=== PATIENT | male | born 1945 | race Caucasian/White ===

== ENCOUNTER 2018-10-19 10:52 | Emergency (ER) | payer MEDICARE, OTHER, SELFPAY ==
[2018-10-19] VITALS (7 sets, daily range): BP systolic 119–143; BP diastolic 74–90; PULSE 59–86; RESP 14–20; TEMP 36.4; O2SAT 97–99; BMI 23.7
--- NOTE | 2018-10-19 12:58 | DI.CT.S_ITS ---
PROCEDURE: CT HEAD/BRAIN WO CON INDICATIONS: Left hand paresthesia, h/o CVA/TIA TECHNIQUE: Noncontrast 4.5 mm thick angled axial sections acquired from the foramen magnum to the vertex, with coronal and sagittal reformats. For radiation dose reduction, the following was used: automated exposure control, adjustment of mA and/or kV according to patient size. COMPARISON: [facility], MR, STROKE PROTOCOL, 06/20/2017, 12:59. [facility], MR, STROKE PROTOCOL, 02/06/2014, 16:20. [facility], CT, HEAD WITHOUT CONTRAST, 02/05/2014, 23:12. FINDINGS: Image quality: Excellent. CSF spaces: Basal cisterns are patent. No extra-axial fluid collections. The ventricles are symmetric in size and shape. Brain: No intracranial bleeds or masses. There is cerebral volume loss for age, with resultant ventricular and sulcal prominence. There are periventricular and deep white matter chronic small vessel ischemic changes. There is intracranial internal carotid artery atherosclerosis. Skull and face: Calvarium and visualized facial bones appear intact, without suspicious lesions. Sinuses: The mastoids are clear. Left maxillary sinus mucosal thickening is present. IMPRESSION: 1. No acute intracranial abnormalities. 2. Cerebral volume loss and chronic microvascular ischemic changes. 3. Left maxillary sinus because of thickening. Dictated by: Philippe Portillo M.D. on 10/19/2018 at 12:16 Approved by: Philippe Portillo M.D. on 10/19/2018 at 12:19
--- NOTE | 2018-10-19 13:08 | ED_ITS ---
HPI - Neuro Symptoms/Deficit <Sheron Golden PA-C - Last Filed: 10/19/18 20:02> General Chief Complaint: Neuro Symptoms/Deficit Stated Complaint: LEFT HAND NUMBNESS, PREVIOUS STROKE Time Seen by Provider: 10/19/18 12:41 Source: patient Mode of arrival: ambulatory Limitations: no limitations History of Present Illness HPI Narrative: This 79-year-old gentleman comes in due to sensation of tingling in his left hand fingers excluding the thumb for less than 48 hr. He states that this actually started while he was traveling in [place] for the [employer] when this started. He states that he had been carrying luggage and things but no specifically known trauma. He states that he has absolutely no weakness in his hand, just a feeling that the fingers are waking up from sleep. He has no pain anywhere including the left upper extremity. He states that he is feeling fine and denies any other new symptoms such as palpitations, chest discomfort, dyspnea, or dizziness. He has not had any difficulty with speech, swallowing, or coordination. He states that tender 15 years ago he did lose speaking ability and had right arm weakness and was evaluated on an emergent basis, symptoms resolved fairly quickly and he believes he was diagnosed with TIA, has been on ASA since then. He states that for 5 years ago, he developed some right hand numbness after he had been working with a chain saw in that hand all day. He states that it resolved within 48 hr, but he was told that he had a CVA. He states that he has been on ASA due to these. He states that he still does not think this episode several years ago was a CVA as he felt it was related to repetitive motion with the saw. He has not had any recurrent symptoms since. Is ambidextrous On Anticoagulants: Yes (80 mg ASA) Related Data Home Medications Medication Instructions Recorded Confirmed Allergy Med 1 tab PO DAILY 10/19/18 10/19/18 Probiotic 1 cap PO DAILY 10/19/18 10/19/18 aspirin 81 mg PO DAILY 10/19/18 10/19/18 omeprazole 20 mg PO DAILY 10/19/18 10/19/18 Allergies Allergy/AdvReac Type Severity Reaction Status Date / Time No Known Drug Allergies Allergy Verified 10/19/18 11:12 Review of Systems <Sheron Golden PA-C - Last Filed: 10/19/18 20:02> Review of Systems All systems reviewed & are unremarkable except as noted in HPI and below Exam <Sheron Golden PA-C - Last Filed: 10/19/18 20:02> Narrative Exam Narrative: GENERAL APPEARANCE: Patient sitting comfortably, appears well HEENT: PERRL, EOMI, normal TMs and oropharynx NECK: Supple LUNGS: Clear to auscultation bilaterally. HEART: Rate and rhythm regular without murmur, normal S1 and S2, no S3 or S4. ABDOMEN: Soft, NT, ND, + BS x 4 quadrants NEUROLOGIC: Alert and oriented, normal speech and coordination. Sensation is intact throughout the fingers in both hands including sharp/dull. Negative Tinel's and Phalen's signs MUSCULOSKELETAL: Full Csp AROM, no Csp TTP. Full AROM bilateral UEs without tenderness. Information Operator strength 5/5 bilateral upper extremities. Initial Vital Signs Initial Vital Signs: Vital Signs Temperature 97.6 F 10/19/18 11:06 Pulse Rate 72 10/19/18 11:06 Respiratory Rate 14 10/19/18 11:06 Blood Pressure 143/90 H 10/19/18 11:06 Pulse Oximetry 97 10/19/18 11:06 <Tiffanie Rodriguez DO - Last Filed: 10/20/18 16:59> Initial Vital Signs Initial Vital Signs: Vital Signs Temperature 97.6 F 10/19/18 11:06 Pulse Rate 72 10/19/18 11:06 Respiratory Rate 14 10/19/18 11:06 Blood Pressure 143/90 H 10/19/18 11:06 Pulse Oximetry 97 10/19/18 11:06 Scores <IGLESIA Kwong Last Filed: 10/19/18 20:02> NIH Stroke Scale Level of Conciousness: Alert, keenly responsive Ask month/age: Answers both questions correctly. Open/close eyes, close hand: Performs both tasks correctly Best gaze horizontal: Normal Visual dias: No visual loss Facial palsy: Normal symetrical movement Left arm drift: No drift for full 10 sec Right arm drift: No drift for full 10 sec Right leg drift: No drift for full 10 sec Limb ataxia: Absent Best language: No aphasia, normal Dysarthria: Normal Extinction or inattention: No abnormality Course <IGLESIA Kwong Last Filed: 10/19/18 20:02> Additional Information: Patient does not appear to have any focal weakness at all. Symptoms are not typical of cerebrovascular event. Reviewed findings with Dr. Rodriguez who agrees reasonable to discharge home as he already has follow- up scheduled with his PCP next week. He will increase his ASA to 324 mg daily for the time being. We talked about symptoms to monitor for and need to return immediately if any and he is agreeable Orders Ordered: ED Orders 10/19/18 12:58 CT head/brain wo con Stat EKG-12 Lead Stat 10/19/18 13:20 Complete Blood Count AUTO DIFF Stat Comprehensive Metabolic Panel Stat Partial Thromboplastin Time Stat Prothrombin Time INR Stat Vital Signs - 8 hr 10/19/18 12:30 10/19/18 12:55 10/19/18 13:30 Pulse Rate 65 64 86 Respiratory Rate 17 17 17 Blood Pressure Blood Pressure [Left Arm] 119/76 119/76 126/76 Pulse Oximetry 97 98 99 10/19/18 13:35 10/19/18 14:01 10/19/18 14:38 Pulse Rate 59 L 79 Respiratory Rate 20 17 Blood Pressure 126/74 Blood Pressure [Left Arm] 126/74 Pulse Oximetry 97 99 <Tiffanie Rodriguez DO - Last Filed: 10/20/18 16:59> Orders Ordered: ED Orders 10/19/18 12:58 CT head/brain wo con Stat EKG-12 Lead Stat 10/19/18 13:20 Complete Blood Count AUTO DIFF Stat Comprehensive Metabolic Panel Stat Partial Thromboplastin Time Stat Prothrombin Time INR Stat Vital Signs - 8 hr 10/19/18 12:30 10/19/18 12:55 10/19/18 13:30 Pulse Rate 65 64 86 Respiratory Rate 17 17 17 Blood Pressure Blood Pressure [Left Arm] 119/76 119/76 126/76 Pulse Oximetry 97 98 99 10/19/18 13:35 10/19/18 14:01 10/19/18 14:38 Pulse Rate 59 L 79 Respiratory Rate 20 17 Blood Pressure 126/74 Blood Pressure [Left Arm] 126/74 Pulse Oximetry 97 99 MDM - Neuro Symptoms/Deficit <IGLESIA Kwong Last Filed: 10/19/18 20:02> Lab Data Result diagrams: 10/19/18 13:20 10/19/18 13:20 Lab Results 10/19/18 10/19/18 10/19/18 Range/Units 13:20 13:20 13:20 WBC 5.3 (4.5-11.0) X10^3/uL RBC 3.96 L (4.5-5.9) X10^6/uL Hgb 12.5 L (13.5-17.5) g/dL Hct 37.4 L (41-53) % MCV 94.5 (80-100) fL MCH 31.6 (26-34) PG MCHC 33.5 (30-36) % RDW 13.2 (11.6-14.8) % Plt Count 272 (150-400) X10^3/uL Neut % (Auto) 63.7 (50-75) % Lymph % (Auto) 25.2 (25-40) % [place] % (Auto) 8.5 (3-14) % Eos % (Auto) 1.9 L (2-4) % Baso % (Auto) 0.7 (0-2) % Neut # (Auto) 3400 (9985-8089) /uL PT 11.5 (10.1-12.7) SECONDS INR 1.0 (0.9-1.3) APTT 29 (26.4-36.2) SECONDS Sodium 143 (137-145) mmol/L Potassium 4.6 (3.4-5.1) mmol/L Chloride 111 H (98-107) mmol/L Carbon Dioxide 23 (22-32) mmol/L BUN 17 (9-20) mg/dL Creatinine 0.80 (0.66-1.25) mg/dL Estimated GFR > 60.0 (>60) mL/min BUN/Creatinine Ratio 21.3 (6-22) Glucose 90 (80-110) mg/dL Calcium 8.9 (8.4-10.2) mg/dL Total Bilirubin 0.3 (0.2-1.3) mg/dL AST 24 (17-59) IU/L ALT 32 (21-72) IU/L Alkaline Phosphatase 84 (38-126) U/L Total Protein 7.0 (6.3-8.2) g/dL Albumin 4.0 (3.5-5.0) g/dL Globulin 3.0 (1.7-4.1) g/dL Albumin/Globulin Ratio 1.3 (1.0-2.8) ECG Data Attestation: I personally reviewed and interpreted this ECG as follows: (Normal sinus rhythm with left axis deviation, rate 62) <Tiffanietwin Rodriguez, DO - Last Filed: 10/20/18 16:59> Lab Data Lab Results 10/19/18 10/19/18 10/19/18 Range/Units 13:20 13:20 13:20 WBC 5.3 (4.5-11.0) X10^3/uL RBC 3.96 L (4.5-5.9) X10^6/uL Hgb 12.5 L (13.5-17.5) g/dL Hct 37.4 L (41-53) % MCV 94.5 (80-100) fL MCH 31.6 (26-34) PG MCHC 33.5 (30-36) % RDW 13.2 (11.6-14.8) % Plt Count 272 (150-400) X10^3/uL Neut % (Auto) 63.7 (50-75) % Lymph % (Auto) 25.2 (25-40) % [place] % (Auto) 8.5 (3-14) % Eos % (Auto) 1.9 L (2-4) % Baso % (Auto) 0.7 (0-2) % Neut # (Auto) 3400 (7670-5037) /uL PT 11.5 (10.1-12.7) SECONDS INR 1.0 (0.9-1.3) APTT 29 (26.4-36.2) SECONDS Sodium 143 (137-145) mmol/L Potassium 4.6 (3.4-5.1) mmol/L Chloride 111 H (98-107) mmol/L Carbon Dioxide 23 (22-32) mmol/L BUN 17 (9-20) mg/dL Creatinine 0.80 (0.66-1.25) mg/dL Estimated GFR > 60.0 (>60) mL/min BUN/Creatinine Ratio 21.3 (6-22) Glucose 90 (80-110) mg/dL Calcium 8.9 (8.4-10.2) mg/dL Total Bilirubin 0.3 (0.2-1.3) mg/dL AST 24 (17-59) IU/L ALT 32 (21-72) IU/L Alkaline Phosphatase 84 (38-126) U/L Total Protein 7.0 (6.3-8.2) g/dL Albumin 4.0 (3.5-5.0) g/dL Globulin 3.0 (1.7-4.1) g/dL Albumin/Globulin Ratio 1.3 (1.0-2.8) Discharge Plan Departure Patient Disposition: Home Clinical Impression: Left hand paresthesia Discharge Date/Time: 10/19/18 14:30 Interventions: ED Discharge Assessment Last Done: 10/19/18 14:38 Instructions: DI for Numbness/tingling Activity Restrictions/Additional Instructions: There was no acute abnormality on your lab work or CT scan of your brain today. On exam, you appear completely normal including being able to discriminate sharp and dull sensation in your tingly fingers, and you have no weakness. This is not typical of a stroke or TIA, however the cause of it is not clear. As we talked about, for now please increase your aspirin to a full dose (325 mg once daily, or you can take 4 of your baby (81 mg) aspirin once daily until you see Dr. Paez next week. At that visit, please talk with her about whether to do further evaluation again such as an MRI (your last 1 was in June of 2017) and have a look at your blood vessels again, and whether further testing should be done. As we talked about, it is crucial that he return to the ED if you develop any new symptoms in the interim such as weakness, difficulty swallowing or with speech as you had before. In that case, call 911 immediately. Prescriptions: No Action Allergy Med 1 tab PO DAILY RF: 0 aspirin 81 mg Tablet,Delayed Release (Dr/Ec) 81 mg PO DAILY RF: 0 omeprazole 20 mg Capsule,Delayed Release(Dr/Ec) 20 mg PO DAILY RF: 0 Probiotic 1 cap PO DAILY RF: 0 Referrals: Arianne Paez MD [Family Provider] - <Tiffanie Rodriguez DO - Last Filed: 10/20/18 16:59> Cosign ED Attending Cosignature Attestation: I was immediately available in the department for consultation. This documentation has been reviewed and I agree with assessment and plan. Supervised by Tiffanie Rodriguez DO
--- NOTE | 2018-10-19 13:26 | PC.NURSE ---
Labs clotted - lab at to draw additional blood
[2018-10-19 13:31] LABS: Add Manual Diff / Slide Review NO; Basophils Percent Auto 0.7 % (0-2); Eosinophils Percent Auto 1.9 % (2-4); Hematocrit 37.4 % (41-53); Hemoglobin 12.5 g/dL (13.5-17.5); Lymphocytes Percent Auto 25.2 % (25-40); Mean Corpuscular HGB Conc 33.5 % (30-36); Mean Corpuscular Hemoglobin 31.6 PG (26-34); Mean Corpuscular Volume 94.5 fL (80-100); Monocytes Percent Auto 8.5 % (3-14); Neutrophils Absolute Auto 3400 /uL (1500-7000); Neutrophils Percent Auto 63.7 % (50-75); Platelet Count 272 X10^3/uL (150-400); Red Blood Cell Count 3.96 X10^6/uL (4.5-5.9); Red Cell Distribution Width 13.2 % (11.6-14.8); White Blood Cell Count 5.3 X10^3/uL (4.5-11.0)
[2018-10-19 13:37] LABS: Prothrombin Time 11.5 SECONDS (10.1-12.7)
[2018-10-19 13:39] LABS: PTT Partial Thromboplastin Tim 29 SECONDS (26.4-36.2)
[2018-10-19 13:42] LABS: Alanine Aminotransferase 32 IU/L (21-72); Albumin Globulin Ratio 1.3 (1.0-2.8); Alkaline Phosphatase 84 U/L (38-126); Aspartate Aminotransferase 24 IU/L (17-59); BUN Creatinine Ratio 21.3 (6-22); Bilirubin Total 0.3 mg/dL (0.2-1.3); Blood Urea Nitrogen 17 mg/dL (9-20); Calcium 8.9 mg/dL (8.4-10.2); Carbon Dioxide 23 mmol/L (22-32); Chloride 111 mmol/L (98-107); Estimated Glomerular Filt Rate > 60.0 mL/min (>60); Glucose 90 mg/dL (80-110); HEMOLYSIS < 15 (0-50); Potassium 4.6 mmol/L (3.4-5.1); Sodium 143 mmol/L (137-145)
--- NOTE | 2018-10-24 11:27 | PC.NURSE ---
Follow up call: patient states he is following up with Dr. Paez tomorrow morning.
== END 2018-10-19 14:30 | disposition home or self-care (01) ==
PROVIDERS: Emergency Provider Internal Medicine; Family Provider Internal Medicine
DX: R20.0 Anesthesia of skin (principal)
CPT/HCPCS: 36415; 70450; 80053; 85025; 85610; 85730; 93005; 93041; 94640; 99283; 99285; 99291

== ENCOUNTER → 2019-11-08 08:15 | Outpatient (CLI) | payer MEDICARE, OTHER, SELFPAY ==
[2019-11-08 08:57] LABS: Alanine Aminotransferase 32 IU/L (<50); Aspartate Aminotransferase 30 IU/L (17-59); Cholesterol 140 mg/dL (140-199); HDL Cholesterol 54 mg/dL (40-60); LDL Cholesterol Calculated 74 mg/dL (<100); Triglycerides 60 mg/dL (35-150)
[2019-11-08 09:28] LABS: Prostate Specific Antigen Scrn 1.48 ng/mL (0.1-4.0)
== END ==
PROVIDERS: Family Provider Internal Medicine; Visit Provider Internal Medicine
DX: Z12.5 Encounter for screening for malignant neoplasm of prostate (principal); E78.5 Hyperlipidemia, unspecified
CPT/HCPCS: 36415; 80061; 84450; 84460; G0103